=== PATIENT | male | born 1980 | race Hispanic/Latino ===

== ENCOUNTER 2019-04-11 02:40 | Emergency (ER) | payer SELFPAY ==
[2019-04-11 03:02] VITALS: BP 137/80
== END 2019-04-11 03:59 | disposition left against medical advice (07) ==
LOC: ED 02:40
DX: K80.80 Other cholelithiasis without obstruction (principal); Z53.21 Procedure and treatment not carried out due to patient leaving prior to being seen by health care provider

== ENCOUNTER 2021-10-25 09:10 | Emergency (ER) | payer SELFPAY ==
[2021-10-25 12:07] LABS: Hematocrit 47.9 % (35.5-45.6); Hemoglobin 15.8 gm/dl (11.8-15.2); Mean Corpuscular HGB Conc 33 % (32-34); Mean Corpuscular Volume 90 fl (84-94); Platelet Count 224 K/mm3 (140-440); Red Blood Count 5.32 M/mm3 (3.65-5.03); Red Cell Distribution Width 13.2 % (13.2-15.2)
[2021-10-25] MEDS ORDERED: SODIUM CHLORIDE 0.9% 1000 ML 1,000 ML IV ONE (12:13)
[2021-10-25 12:18] LABS: Alanine Aminotransferase 30 units/L (7-56); Albumin 4.1 g/dL (3.9-5); BUN/Creatinine Ratio 10; Blood Urea Nitrogen 8 mg/dL (9-20); Calcium 9.3 mg/dL (8.4-10.2); Hemolysis Index 8
[2021-10-25 13:08] LABS: Basophils % (Manual) 0 % (0.0-1.8); Eosinophils % (Manual) 0 % (0.0-4.3); Platelet Estimate Consistent w Auto; RBC Morphology Normal; Total Cells Counted 100
--- NOTE | 2021-10-25 13:31 | Cat Scan Report ---
CT ABDOMEN AND PELVIS WITH CONTRAST HISTORY: R/midline ventral hernia; pain, vomiting; eval for. COMPARISON: None. TECHNIQUE: CT images of the abdomen and pelvis were obtained following administration of intravenous contrast. All CT scans at this location are performed using CT dose reduction for ALARA by means of automated exposure control. CONTRAST: 100 ml of intravenous contrast administered. FINDINGS: Lungs/bones: Tiny nodule 1 to 2 mm in the left lower lung of uncertain clinical significance given i ts size Abdomen/pelvis: Mild fatty infiltration of the liver. Hypodensity right hepatic lobe could represent a cyst however nonspecific. Gallstone seen within the gallbladder. Adrenal glands, spleen, pancreas appear normal. There is a ventral abdominal wall hernia containing transverse colon loop. No definite evidence for obstruction. No inflammatory change or free fluid. Portal vein is patent. Celiac and SM A appear normal. Bilateral kidneys appear normal. No bowel obstruction is seen. Urinary bladder appea rs normal. Small mesenteric nodes are seen without dominant adenopathy. IMPRESSION: 1. Cholelithiasis 2. Ventral abdominal wall hernia containing transverse colon loops. The mouth of the hernia measures 4.35 cm. No definite evidence for obstruction at this time. Signer Name: Jacob Mcginnis MD Signed: 10/25/2021 1:26 PM Workstation Name: [id number]
[2021-10-25 13:45] LABS: Bilirubin,Urine NEG (Negative); Blood,Urine NEG (Negative); Color,Urine Yellow (Yellow); Urobilinogen,Urine < 2.0 mg/dL (<2.0)
[2021-10-25 13:50] LABS: Mucus,Urine 2+ /HPF
[2021-10-25 14:01] LABS: Amphetamine Screen,Urine PRESUMPTIVE NEGATIVE; Benzodiazepines Screen,Urine PRESUMPTIVE NEGATIVE; Cannabinoid Screen,Urine PRESUMPTIVE POSITIVE; Cocaine Screen,Urine PRESUMPTIVE NEGATIVE; Methadone Screen,Urine PRESUMPTIVE NEGATIVE; Opiate Screen,Urine PRESUMPTIVE NEGATIVE
--- NOTE | 2021-10-25 14:37 | Emergency Department Report ---
ED Abdominal Pain HPI - General Chief Complaint: Abdominal Pain Stated Complaint: ABDOMINAL PAIN PUI?: No Time Seen by Provider: 10/25/21 10:51 Source: EMS Mode of arrival: Ambulatory Limitations: No Limitations - History of Present Illness Initial Comments: 41-year-old male with history of per his verbal report chronic ventral wall hernia since age 17, no prior operations to hernia, chronic tobacco abuse, presents for evaluation of abdominal pain. Patient states however his pain resolved immediately upon arrival to the ER. He states last night he ate [employer] and subsequently developed pain in the area of his hernia. He states the area was hard pressure-like constant nonradiating. He reports he was nauseated and forced himself to vomit. No melena hematochezia or hematemesis. No symptoms. Pain currently 0-10 patient really denies any nausea at this time MD Complaint: abdominal pain -: Gradual, hour(s) Location: diffuse Radiation: none Migration to: no migration Severity: mild Severity scale (0 -10): 10 Consistency: now resolved Improves With: nothing Worsens With: nothing Context: other (Patient reports history of same hernia has been present since age 17) Associated Symptoms: denies other symptoms, nausea. denies: vomiting, diarrhea, fever, chills, constipation, dysuria, hematemesis, hematochezia, melena, hematuria, anorexia - Related Data Previous Rx's Medication Instructions Recorded Last Taken Type Ibuprofen [Motrin 800 MG tab] 800 mg PO Q8HR PRN #20 tablet 04/30/15 Unknown Rx Sulfamethoxazole/Trimethoprim 1 each PO BID #20 tablet 04/30/15 Unknown Rx [Bactrim DS TAB] Ondansetron [Zofran Odt] 4 mg PO Q8HR #12 tab.rapdis 10/25/21 Unknown Rx Allergies Allergy/AdvReac Type Severity Reaction Status Date / Time No Known Allergies Allergy Verified 10/25/21 09:21 ED Review of Systems ROS: Stated complaint: ABDOMINAL PAIN Other details as noted in HPI Comment: All other systems reviewed and negative Constitutional: no symptoms reported Eyes: as per HPI ENT: as per HPI Respiratory: no symptoms reported Cardiovascular: as per HPI Endocrine: no symptoms reported Gastrointestinal: as per HPI, abdominal pain, nausea. denies: vomiting, diarrhea, constipation, hematemesis, melena, hematochezia Genitourinary: as per HPI Musculoskeletal: back pain Skin: as per HPI Neurological: as per HPI Psychiatric: as per HPI Hematological/Lymphatic: as per HPI ED Past Medical Hx - Past Medical History Previous Medical History?: Yes Additional medical history: Chronic ventral hernia since age 17 - Surgical History Past Surgical History?: No - Family History Family history: no significant - Social History Smoking Status: Current Every Day Smoker Substance Use Type: None - Medications Home Medications: Home Medications Medication Instructions Recorded Confirmed Last Taken Type Ibuprofen [Motrin 800 MG tab] 800 mg PO Q8HR PRN #20 tablet 04/30/15 Unknown Rx Sulfamethoxazole/Trimethoprim 1 each PO BID #20 tablet 04/30/15 Unknown Rx [Bactrim DS TAB] Ondansetron [Zofran Odt] 4 mg PO Q8HR #12 tab.rapdis 10/25/21 Unknown Rx ED Physical Exam - General Limitations: No Limitations General appearance: alert, in no apparent distress - Head Head exam: Present: atraumatic, normocephalic, normal inspection - Eye Eye exam: Present: normal appearance, PERRL, EOMI Pupils: Present: normal accommodation - ENT ENT exam: Present: normal exam, normal orophraynx, mucous membranes moist, normal external ear exam. Absent: mucous membranes dry - Neck Neck exam: Present: normal inspection, full ROM, other. Absent: tenderness, meningismus, lymphadenopathy, thyromegaly - Respiratory Respiratory exam: Present: normal lung sounds bilaterally - Cardiovascular Cardiovascular Exam: Present: regular rate, normal rhythm, normal heart sounds - GI/Abdominal GI/Abdominal exam: Present: soft, distended, hyperactive bowel sounds, hernia, other (Large palpable midline/right-sided ventral hernia, hyperactive bowel sounds noted, area soft nondistended nontender, not able to be reduced here in the emergency department). Absent: tenderness, guarding, rebound, rigid, normal bowel sounds, diminished bowel sounds, hypoactive bowel sounds, organomegaly, mass, bruit, pulsatile mass - Extremities Exam Extremities exam: Present: normal inspection, full ROM, normal capillary refill. Absent: tenderness, pedal edema, joint swelling, calf tenderness - Back Exam Back exam: Present: normal inspection, full ROM - Neurological Exam Neurological exam: Present: alert, oriented X3, CN II-XII intact, normal gait, motor sensory deficit - Psychiatric Psychiatric exam: Present: normal affect, normal mood - Skin Skin exam: Present: warm, dry, intact, normal color ED Course Vital Signs 10/25/21 10/25/21 10/25/21 09:19 09:32 09:45 Pulse Rate 64 64 Respiratory 18 Rate Blood Pressure 119/75 Blood Pressure 150/70 [Left] O2 Sat by Pulse 98 98 97 Oximetry 10/25/21 10/25/21 10/25/21 10:01 10:15 10:31 Pulse Rate 63 58 L 56 L Respiratory Rate Blood Pressure 117/72 117/72 117/72 Blood Pressure [Left] O2 Sat by Pulse 98 96 97 Oximetry 10/25/21 10/25/21 10/25/21 10:45 11:01 11:15 Pulse Rate 55 L 55 L 74 Respiratory Rate Blood Pressure 117/72 100/60 100/60 Blood Pressure [Left] O2 Sat by Pulse 94 95 98 Oximetry 10/25/21 10/25/21 10/25/21 11:28 11:31 11:45 Pulse Rate 65 65 Respiratory Rate Blood Pressure 100/60 100/60 Blood Pressure [Left] O2 Sat by Pulse 97 97 99 Oximetry 10/25/21 10/25/21 10/25/21 12:00 12:15 12:31 Pulse Rate 67 59 L 51 L Respiratory Rate Blood Pressure 116/62 116/62 116/62 Blood Pressure [Left] O2 Sat by Pulse 98 97 99 Oximetry - Reevaluation(s) Reevaluation #1: 10/25/21 14:37 Patient is well-appearing, really denies any active abdominal pain, abdomen remains soft nondistended except area of palpable ventral hernia which cannot be reduced by me at the bedside, no guarding or rebound tenderness, pain 0 out of 10 per patient's report ED Medical Decision Making - Lab Data Result diagrams: 10/25/21 11:22 10/25/21 11:22 - EKG Data Rate: normal - EKG Data When compared to previous EKG there are: no significant change Interpretation: no acute changes, normal EKG, unchanged when compared t - Radiology Data Radiology results: report reviewed - Medical Decision Making 41-year-old male with a chronic history of ventral wall hernia to his abdomen, presents for evaluation of abdominal pain nausea vomiting, all of which have resolved prior to arrival. Vital signs stable. Labs grossly unremarkable. Patient underwent serial abdominal exams by me and his abdomen remains nontender without guarding or rebound tenderness. He has no signs of symptoms of active incarceration of his intra-abdominal contents in the setting of the ventral hernia. CT scan of abdomen pelvis obtained and per reading radiologist there is no evidence of ischemia or obstruction or any life-threatening pathology in the setting of the patient's hernia. Gallstone also found. Patient was given referral information to on-call general surgeon, Dr. Smith. He was instructed to telephone her office in 1-2 business days to schedule immediate outpatient follow-up appointment for reassessment. Prior to discharge she was given strict verbal and written return precautions. Patient verbalized understanding and agreement of plan of care. Critical Care Time: No Critical care attestation.: If time is entered above; I have spent that time in minutes in the direct care o f this critically ill patient, excluding procedure time. ED Disposition Clinical Impression: Ventral hernia, Gallstone Disposition: HOME / SELF CARE / HOMELESS Is pt being admited?: No Does the pt Need Aspirin: No Condition: Stable Instructions: Ventral Hernia Additional Instructions: It is important that you telephone general surgeon to obtain outpatient follow- up appointment for surgical intervention as soon as possible. Your CAT scan just today does not show any blockage in your intestine or infection that has occurred as a result of your hernia. However given that you have experienced pain it is very important to see a surgeon. You are being referred to our on-call surgeon, Dr. Smith. Please telephone her office within 1 business day to schedule an outpatient follow-up appointment. Take ibuprofen as needed for pain. Take Zofran as needed for nausea. Return to the nearest emergency department soon as possible if you develop severe or worsening pain, vomiting, any fever 100.4 Fahrenheit or higher, bloody stools, or if any other new worrisome symptoms develop. Prescriptions: Ondansetron [Zofran Odt] 4 mg PO Q8HR #12 tab.rapdis Referrals: PAMELA SMITH MD [Staff Physician] - 3-5 Days
[2021-10-25 16:38] VITALS: BP 151/90
== END 2021-10-25 15:30 | disposition home or self-care (01) ==
LOC: ED 09:10
DX: K43.9 Ventral hernia without obstruction or gangrene (principal); K80.80 Other cholelithiasis without obstruction; F17.290 Nicotine dependence, other tobacco product, uncomplicated
CPT/HCPCS: 36415; 74177; 80053; 80307; 81001; 83690; 85007; 85025; 96360; 99284; J7030; Q9967